=== PATIENT | female | born 1975 | race Caucasian/White ===

== ENCOUNTER 2017-11-21 00:53 | Inpatient (IN) | payer OTHER ==
[~2017-11-21] VITALS: Ht 165.1 cm; Wt 90.9 kg
[2017-11-21 01:41] VITALS: BP 111/61
[2017-11-21 02:34] VITALS: BP 98/59; BMI 33.3
[2017-11-21 04:50] LABS: BASOPHILS 0.2 % (0-2); EOSINOPHILS 2.6 % (0-7); HEMATOCRIT 36.6 % (36.0-48.0); HEMOGLOBIN 11.7 g/dL (12-16); IMMATURE GRANULOCYTES 0.2 % (0-5); LYMPHOCYTES 31.2 % (15-50); MCH 27.3 pg (26.0-34.0); MCV 85.3 fL (80.0-100.0); MEAN PLATELET VOLUME 10.3 fL (7.4-10.4); MONOCYTES 7.5 % (2-11); NEUTROPHILS 58.3 % (40-80); PLATELET COUNT 200 10x3/uL (130-400); RBC 4.29 10x6/uL (4.00-5.40); RDW 13.4 % (11.5-14.5); WBC 5.8 10x3/uL (4.8-10.8)
[2017-11-21 05:08] LABS: ALKALINE PHOSPHATASE 66 U/L (46-116); ALT (SGPT) 21 U/L (10-68); AMYLASE - SERUM 22 U/L (25-115); BILIRUBIN - TOTAL 0.74 mg/dL (0.2-1.3); CALC OSMOLALITY 276 mosm/kg (275-300); CALCIUM 8.1 mg/dL (8.5-10.1); CARBON DIOXIDE 27.9 mmol/L (21.0-32.0); CHLORIDE - SERUM 108 mmol/L (98-107); CREATININE - SERUM 0.8 mg/dL (0.6-1.3); GLUCOSE 92 mg/dL (74-106); LIPASE 93 U/L (73-393); POTASSIUM - SERUM 3.8 mmol/L (3.5-5.1); PROTEIN - SERUM 6.5 g/dL (6.4-8.2); SODIUM 140 mmol/L (136-145); UREA NITROGEN 6 mg/dL (7-18); eGFR NON AFRICAN AMERICAN 84 mL/min (90-120)
[2017-11-21 08:03] VITALS: BP 121/49
[2017-11-21 10:54] VITALS: Ht 165.1 cm; Wt 90.9 kg
[2017-11-21 11:59] VITALS: BP 109/57
[2017-11-21 13:09] LABS: % SATURATION 13 % (15-55); IRON 41 ug/dl (35-150); TOTAL IRON BIND CAPACITY 314 ug/dl (260-445); UNSAT IRON BIND CAPACITY 273 ug/dl (150-375)
[2017-11-21 21:31] VITALS: BP 108/72
[2017-11-22 05:13] VITALS: BP 124/74
[2017-11-22 05:45] LABS: BASOPHILS 0.2 % (0-2); EOSINOPHILS 2.6 % (0-7); HEMATOCRIT 36.9 % (36.0-48.0); HEMOGLOBIN 11.6 g/dL (12-16); IMMATURE GRANULOCYTES 0.2 % (0-5); LYMPHOCYTES 30.2 % (15-50); MCH 26.6 pg (26.0-34.0); MCHC 31.4 g/dL (31.0-37.0); MCV 84.6 fL (80.0-100.0); MEAN PLATELET VOLUME 10.4 fL (7.4-10.4); MONOCYTES 8.3 % (2-11); NEUTROPHILS 58.5 % (40-80); PLATELET COUNT 167 10x3/uL (130-400); RBC 4.36 10x6/uL (4.00-5.40); RDW 13.2 % (11.5-14.5)
[2017-11-22 05:55] LABS: WBC 4.2 10x3/uL (4.8-10.8)
[2017-11-22 06:06] LABS: ALKALINE PHOSPHATASE 61 U/L (46-116); ALT (SGPT) 22 U/L (10-68); BILIRUBIN - TOTAL 0.93 mg/dL (0.2-1.3); CALC OSMOLALITY 278 mosm/kg (275-300); CALCIUM 8.4 mg/dL (8.5-10.1); CARBON DIOXIDE 25.8 mmol/L (21.0-32.0); CHLORIDE - SERUM 106 mmol/L (98-107); CREATININE - SERUM 0.8 mg/dL (0.6-1.3); GLUCOSE 81 mg/dL (74-106); PROTEIN - SERUM 6.1 g/dL (6.4-8.2); SODIUM 142 mmol/L (136-145); UREA NITROGEN 5 mg/dL (7-18); eGFR NON AFRICAN AMERICAN 84 mL/min (90-120)
[2017-11-22 08:20] VITALS: BP 112/53
[2017-11-22 08:20] LABS: FOLATE (FOLIC ACID) - SERUM 7.8 ng/mL (>3.0)
[2017-11-22 11:51] VITALS: BP 130/68
[2017-11-22 20:52] VITALS: BP 94/50
[2017-11-23 04:22] VITALS: BP 104/54
[2017-11-23 05:23] LABS: BASOPHILS 0.2 % (0-2); EOSINOPHILS 2.2 % (0-7); HEMATOCRIT 36.7 % (36.0-48.0); HEMOGLOBIN 11.9 g/dL (12-16); IMMATURE GRANULOCYTES 0.4 % (0-5); LYMPHOCYTES 28.8 % (15-50); MCH 27.2 pg (26.0-34.0); MCHC 32.4 g/dL (31.0-37.0); MCV 83.8 fL (80.0-100.0); MEAN PLATELET VOLUME 10.8 fL (7.4-10.4); MONOCYTES 7.9 % (2-11); NEUTROPHILS 60.5 % (40-80); PLATELET COUNT 180 10x3/uL (130-400); RBC 4.38 10x6/uL (4.00-5.40); WBC 4.9 10x3/uL (4.8-10.8)
[2017-11-23 05:48] LABS: ALKALINE PHOSPHATASE 55 U/L (46-116); ALT (SGPT) 19 U/L (10-68); BILIRUBIN - TOTAL 0.49 mg/dL (0.2-1.3); CALC OSMOLALITY 282 mosm/kg (275-300); CALCIUM 8.3 mg/dL (8.5-10.1); CARBON DIOXIDE 28.3 mmol/L (21.0-32.0); CHLORIDE - SERUM 107 mmol/L (98-107); CREATININE - SERUM 0.8 mg/dL (0.6-1.3); GLUCOSE 105 mg/dL (74-106); POTASSIUM - SERUM 3.9 mmol/L (3.5-5.1); PROTEIN - SERUM 6.4 g/dL (6.4-8.2); SODIUM 143 mmol/L (136-145); eGFR NON AFRICAN AMERICAN 84 mL/min (90-120)
[2017-11-23 06:08] LABS: UREA NITROGEN 8 mg/dL (7-18)
[2017-11-23 08:48] VITALS: BP 115/62
[2017-11-23 12:45] VITALS: BP 117/64; BP 97/45
[2017-11-23] MEDS ORDERED: LEVAQUIN750 MG PO (14:01)
[2017-11-23] MEDS ORDERED: FLAGYL500 MG PO (14:01)
[2017-11-30 18:10] LABS: OVA + PARASITE EXAM Final report (())
== END 2017-11-23 16:12 | disposition home health service (06) | DRG 392 ==
LOC: D.ER 00:53 → D.MS 01:35
PROVIDERS: Family Medicine; Internal Medicine Nephrology; Surgery
DX: A09 Infectious gastroenteritis and colitis, unspecified (principal); D64.9 Anemia, unspecified; R51 Headache